=== PATIENT | male | born 1960 | race Caucasian/White ===

== ENCOUNTER 2019-09-16 07:58 | Day surgery (SDC) | payer BC ==
[2019-09-12 11:56] VITALS: BMI 27.2
[2019-09-16] MEDS ORDERED: PROPOFOL 20 ML ONE ×2 (08:23)
[2019-09-16 08:32] VITALS: TEMP 98.2
[2019-09-16 10:00] VITALS: BP 122/79; PULSE 65
== END 2019-09-16 10:00 | disposition home or self-care (01) ==
LOC: FASU-ENDO 07:58
PROVIDERS: ATTEND Internal Medicine Gastroenterology
PROC: 0DJD8ZZ Inspection of Lower Intestinal Tract, Via Natural or Artificial Opening Endoscopic (ICD-10-PCS; principal; 2019-09-16 08:00)
DX: Z12.11 Encounter for screening for malignant neoplasm of colon (principal); Z80.0 Family history of malignant neoplasm of digestive organs; Z83.71 Family history of colonic polyps; K57.30 Diverticulosis of large intestine without perforation or abscess without bleeding

== ENCOUNTER 2024-07-19 16:35 | Emergency (ER) | payer BC ==
[2024-07-19 17:16] VITALS: BP 125/79; PULSE 88; RESP 16; TEMP 98.4; BMI 27.9
[2024-07-19 18:02] LABS: HEMATOCRIT 45.3 % (35.4-49); HEMOGLOBIN 14.7 G/dL (11.7-16.9); MCH 28.5 pg (25.7-33.7); MCHC 32.4 g/dl (32.0-35.9); MEAN CELL VOLUME 88.2 fl (80-96); MEAN PLT VOLUME 8.1 fl (7.5-11.1); PLATELET COUNT 288.2 10^3/uL (134-434); RBC 5.14 10^6/uL (4.00-5.60); RDW 14.9 % (11.9-15.9); WHITE BLOOD COUNT 11.3 10^3/uL (4.0-10.8)
[2024-07-19 18:09] LABS: INR 0.93 (0.83-1.09); PROTHROMBIN TIME (PATIENT) 10.6 SEC (9.7-13.0)
[2024-07-19 18:12] LABS: ACTIVATED PTT 31.7 SECONDS (25.2-36.5)
[2024-07-19 18:18] LABS: ALBUMIN 4.5 g/dl (3.4-5.0); BILIRUBIN,TOTAL 0.7 mg/dl (0.2-1); CALCIUM 9.4 mg/dl (8.5-10.1); CREATININE 1.4 mg/dl (0.6-1.3); TOT PROT 7.6 g/dl (6.4-8.2)
[2024-07-19 18:21] LABS: POTASSIUM 5.2 mmol/L (3.5-5.1)
[2024-07-19 18:23] LABS: PLATELET ESTIMATE ADEQUATE
[2024-07-19] MEDS ORDERED: FAMOTIDINE 20 MG/50 ML IVPB 20 MG/50 ML MG IVPB ONE (18:26)
[2024-07-19] MEDS ORDERED: MAG HYDROX/AL HYDROX/SIMETH 30 ML UNIT-DOSE CUP ONE (18:27)
[2024-07-19] MEDS: MAG HYDROX/AL HYDROX/SIMETH 30 ML UNIT-DOSE CUP PO ONE (18:30)
[2024-07-19] MEDS: FAMOTIDINE 20 MG/50 ML IVPB 20 MG/50 ML MG IVPB ONE (18:30)
== END 2024-07-19 21:06 | disposition home or self-care (01) ==
LOC: FER 16:35
PROC: 3E033GC Introduction of Other Therapeutic Substance into Peripheral Vein, Percutaneous Approach (ICD-10-PCS; principal; 2024-07-19)
DX: R10.33 Periumbilical pain (principal); R19.7 Diarrhea, unspecified; R11.2 Nausea with vomiting, unspecified; R10.13 Epigastric pain; R10.10 Upper abdominal pain, unspecified
CPT/HCPCS: 36415; 74177-TC; 80053; 83690; 85025; 85610; 85730; 99285-25

== ENCOUNTER 2025-04-30 08:06 | Day surgery (SDC) | payer OTHER ==
[2025-04-25 16:27] VITALS: BMI 27.9
[2025-04-30 08:19] VITALS: PULSE 75; RESP 18
[2025-04-30] MEDS ORDERED: MIDAZOLAM HCL 2 MG/2 ML SINGLE DOSE VIAL ONE (08:24)
[2025-04-30] MEDS: CIPROFLOXACIN 0.3% EYE DROPS 5 ML BOTTLE ONE (08:30)
[2025-04-30] MEDS: PHENYLEPHRINE 2.5% OPTHALMIC DROP 2ML BOTTLE ONE (08:30)
[2025-04-30] MEDS: TROPICAMIDE 1% 3 ML EYE DROPS ONE (08:30)
[2025-04-30] MEDS: CYCLOPENTOLATE 2% OPHTH SOLN 2 ML BOTTLE ONE (08:30)
[2025-04-30] MEDS ORDERED: BSS (NA/CA/MG/K) BALANCED SALT SOLUTION OPHTH SOLN 15 ML BOTTLE ONE (09:40)
[2025-04-30] MEDS ORDERED: LIDOCAINE 1% P/F 10 MG/ML VIAL ONE (09:40)
[2025-04-30] MEDS ORDERED: EPINEPHrine 1:1000 P/F - 1 MG/ML AMP ONE (09:40)
[2025-04-30] MEDS ORDERED: CARBACHOL 0.01% INTRA-OCULAR 1.5 ML VIAL ONE (09:40)
[2025-04-30] MEDS ORDERED: ONDANSETRON 4 MG/2 ML VIAL ONE (10:32)
[2025-04-30 11:27] VITALS: BP 110/65; TEMP 97.4
== END 2025-04-30 11:25 | disposition home or self-care (01) ==
LOC: FASU 08:06
PROVIDERS: ATTEND Ophthalmology
PROC: 08RK3JZ Replacement of Left Lens with Synthetic Substitute, Percutaneous Approach (ICD-10-PCS; principal; 2025-04-30 10:17)
DX: H26.8 Other specified cataract (principal)
CPT/HCPCS: 66984; V2632

== ENCOUNTER 2025-07-16 07:56 | Day surgery (SDC) | payer OTHER ==
[2025-07-11 11:35] VITALS: BMI 27.2
[2025-07-16 18:22] VITALS: TEMP 97.5
[2025-07-16 18:24] VITALS: BP 117/64; RESP 17
[2025-07-16 18:26] VITALS: PULSE 65
== END 2025-07-16 10:10 | disposition home or self-care (01) ==
LOC: FASU-ENDO 07:56
PROVIDERS: ATTEND Internal Medicine Gastroenterology
PROC: 0DBL8ZX Excision of Transverse Colon, Via Natural or Artificial Opening Endoscopic, Diagnostic (ICD-10-PCS; 2025-07-16)
PROC: 0DBN8ZX Excision of Sigmoid Colon, Via Natural or Artificial Opening Endoscopic, Diagnostic (ICD-10-PCS; principal; 2025-07-16 08:51)
DX: D12.3 Benign neoplasm of transverse colon (principal); D12.5 Benign neoplasm of sigmoid colon; K57.30 Diverticulosis of large intestine without perforation or abscess without bleeding; Z80.0 Family history of malignant neoplasm of digestive organs
CPT/HCPCS: 88305-TC